=== PATIENT | female | born 1965 | race Hispanic/Latino ===

== ENCOUNTER 2017-11-25 15:42 | Outpatient (CLI) | payer OTHER ==
--- NOTE | 2017-11-28 14:27 | MMO ---
MAMMOGRAM DIGITAL SCREENING BILATERAL: DATE: 11/25/17 HISTORY: 52-year-old female for routine bilateral screening mammogram. COMPARISON: 11/07/16 and 06/20/14. TECHNIQUE: Digital mammographic views. Computer-aided detection (CAD) utilized. FINDINGS: There are scattered areas of fibroglandular density. There is no evidence of suspicious mass, suspicious calcifications, or architectural distortion. The re is no significant interval change since the prior mammogram. IMPRESSION: 1. BIRADS 1 - Negative. 2. Recommendation: routine bilateral annual screening mammogram (unless the patient develops suspici ous clinical findings that would warrant earlier imaging follow up). maranda [] POS: JESSICA
== END 2017-11-25 15:43 | disposition home or self-care (01) ==
LOC: SCSMAMMO 15:42
PROVIDERS: ATTEND Nurse Practitioner Family
DX: Z12.31 Encounter for screening mammogram for malignant neoplasm of breast (principal)
CPT/HCPCS: 77067

== ENCOUNTER 2021-03-01 14:03 | Outpatient (CLI) | payer OTHER | END 2021-03-01 14:04 | disposition home or self-care (01) | LOC: BICMAMMO 14:03 | PROVIDERS: ATTEND Nurse Practitioner Family | DX: Z12.31 Encounter for screening mammogram for malignant neoplasm of breast (principal) | CPT/HCPCS: 77063; 77067 ==

== ENCOUNTER 2022-03-13 11:58 | Outpatient (CLI) | payer OTHER | END 2022-03-13 11:59 | disposition home or self-care (01) | LOC: BICMAMMO 11:58 | PROVIDERS: ATTEND Family Medicine | DX: Z12.31 Encounter for screening mammogram for malignant neoplasm of breast (principal) | CPT/HCPCS: 77063; 77067 ==

== ENCOUNTER 2023-07-02 14:53 | Outpatient (CLI) | payer OTHER | END 2023-07-02 14:54 | disposition home or self-care (01) | LOC: BICMAMMO 14:53 | PROVIDERS: ATTEND Internal Medicine | DX: Z12.31 Encounter for screening mammogram for malignant neoplasm of breast (principal) | CPT/HCPCS: 77063; 77067 ==